=== PATIENT | female | born 1980 | race Caucasian/White ===

== ENCOUNTER → 2020-04-28 15:45 | Observation (INO) ==
[2020-04-27 14:08] LABS: Bilirubin,Urine Negative (Negative); Blood,Urine Negative (Negative); Clarity,Urine Clear (Clear); Color,Urine Colorless (Yellow); Glucose,Urine (UA) Normal (Normal); Ketones,Urine Negative (Negative); Leukocyte Esterase,Urine Negative (Negative); Nitrite,Urine Negative (Negative); PH,Urine 7.5 pH Units (5.0-8.0); Protein,Urine Negative (Neg-Trace); Specific Gravity,Urine 1.005 (1.010-1.025); Urobilinogen,Urine Normal (Normal)
[2020-04-27 15:01] LABS: Basophils % 0.4 %; Eosinophils # 0.1 K/mcL (0.0-0.6); Eosinophils % 0.5 %; Hematocrit 32.8 % (35.3-44.9); Hemoglobin 10.3 g/dL (11.5-15.4); Immature Granulocytes % 1.3 % (0-4); Lymphocytes # 1.5 K/mcL (0.6-4.6); Lymphocytes % 13.9 %; Mean Corpuscular HGB Conc 31.4 g/dL (31.6-35.5); Mean Corpuscular Hemoglobin 26.2 pg (28.0-33.3); Mean Corpuscular Volume 83.5 fL (83.0-100.0); Mean Platelet Volume 10.1 fL (9.4-12.4); Monocytes # 0.5 K/mcL (0.0-1.3); Neutrophils # 8.5 K/mcL (1.6-8.9); Nucleated Red Blood Cells 0.2 /100 WBC (0); Platelet Count 319 K/mcL (140-400); Red Blood Count 3.93 M/mcL (3.82-4.97); Red Cell Distribution Width 15.3 % (11.5-14.5); Segmented Neutrophils % 78.9 %; White Blood Count 10.8 K/mcL (4.3-11.1)
[2020-04-27 15:10] LABS: Protein/Creatinine Ratio,Urine 0.41 mg/mg (0.00-0.20)
[2020-04-27 15:21] LABS: Alanine Aminotransferase 10 Units/L (7-52); Aspartate Amino Transferase 10 Units/L (13-39); BUN/Creatinine Ratio 14 (6-26); Blood Urea Nitrogen 6 mg/dL (6-20); Lactate Dehydrogenase 120 Units/L (140-271); Uric Acid 3.5 mg/dL (2.3-7.6); eGFR For African Americans > 60 (> 60); eGFR For Non-African Americans > 60 (> 60)
[2020-04-27] MEDS: Betamethasone Acet/SodPhos 30 MG/5 ML VIAL IM SCH (17:18)
[2020-04-27] MEDS: Ringers Solution, Lactated 1,000 ML IVC SCH (17:18)
[2020-04-28] MEDS: Ringers Solution, Lactated 1,000 ML IVC SCH ×2 (00:11→08:48)
[2020-04-28] MEDS: Betamethasone Acet/SodPhos 30 MG/5 ML VIAL IM SCH (05:07)
[2020-04-28 08:42] LABS: Alanine Aminotransferase 10 Units/L (7-52); Aspartate Amino Transferase 10 Units/L (13-39); BUN/Creatinine Ratio 10 (6-26); Blood Urea Nitrogen 4 mg/dL (6-20); Lactate Dehydrogenase 135 Units/L (140-271); eGFR For African Americans > 60 (> 60); eGFR For Non-African Americans > 60 (> 60)
[~2020-04-28 15:45] MED LIST: *HR* Metformin 500 MG TABLET PO SCH; Betamethasone Acet/SodPhos 30 MG/5 ML VIAL IM SCH; LABETALOL 100 MG PO SCH; NIFEDIPINE 30 MG PO SCH; NIFEDIPINE 90 MG PO SCH; NIFEdipine XL (24 HR) 30 MG TAB.ER.24 PO SCH; Ringers Solution, Lactated 1,000 ML IVC ONE
== END | disposition home or self-care (01) ==
LOC: 1NENULAB
PROVIDERS: ADMIT Obstetrics & Gynecology; ATTEND Obstetrics & Gynecology

== ENCOUNTER → 2020-04-29 14:03 | Observation (INO) | END | disposition home or self-care (01) | LOC: 1NENULAB | PROVIDERS: ADMIT Obstetrics & Gynecology; ATTEND Obstetrics & Gynecology ==

== ENCOUNTER 2020-04-30 12:37 | Inpatient (IN) ==
[2020-04-30] MEDS ORDERED: Famotidine 20 MG/2 ML VIAL IVP ONE (12:57)
[2020-04-30] MEDS ORDERED: Oxytocin 20 units/ LR 1000 mL 20 UNIT/1,000 ML BAG IVC ONE (12:57)
[2020-04-30] MEDS ORDERED: CeFAZolin Syr 3,000MG/30 ML 3,000 MG/30 ML SYRINGE IVPB ONE (12:57)
[2020-04-30] MEDS ORDERED: Metoclopramide 10 MG/2 ML VIAL IVP ONE (12:57)
[2020-04-30] MEDS ORDERED: Ringers Solution, Lactated 1,000 ML IVC SCH ×2 (13:00→21:38)
[2020-04-30] MEDS ORDERED: FLU Vac QV 20-21 (6Month+)/PF 0.5 ML SYRINGE IM ONE (14:32)
[2020-04-30 14:34] LABS: Basophils # 0.1 K/mcL (0.0-0.2); Basophils % 0.4 %; Eosinophils % 0.3 %; Hematocrit 31.5 % (35.3-44.9); Hemoglobin 10.1 g/dL (11.5-15.4); Immature Granulocytes % 1.7 % (0-4); Lymphocytes # 1.7 K/mcL (0.6-4.6); Lymphocytes % 13.9 %; Mean Corpuscular HGB Conc 32.1 g/dL (31.6-35.5); Mean Corpuscular Hemoglobin 26.4 pg (28.0-33.3); Mean Corpuscular Volume 82.2 fL (83.0-100.0); Mean Platelet Volume 9.9 fL (9.4-12.4); Monocytes # 0.7 K/mcL (0.0-1.3); Monocytes % 5.9 %; Neutrophils # 9.3 K/mcL (1.6-8.9); Platelet Count 306 K/mcL (140-400); Red Blood Count 3.83 M/mcL (3.82-4.97); Red Cell Distribution Width 15.3 % (11.5-14.5); Segmented Neutrophils % 77.8 %; White Blood Count 11.9 K/mcL (4.3-11.1)
[2020-04-30 14:50] LABS: Amphetamine Screen,Urine Negative ng/mL (Cutoff=1000); Barbiturate Screen,Urine Negative ng/mL (Cutoff=200); Benzodiazepines Screen,Urine Negative ng/mL (Cutoff=200); Cannabinoid Screen,Urine Negative ng/mL (Cutoff = 50); Cocaine Screen,Urine Negative ng/mL (Cutoff= 300); Opiate Screen,Urine Negative ng/mL (Cutoff=300); Phencyclidine Screen,Urine Negative ng/mL (Cutoff=25)
[2020-04-30 15:27] LABS: Creatinine,Urine 13 mg/dL
[2020-04-30 16:15] LABS: Alanine Aminotransferase 12 Units/L (7-52); Aspartate Amino Transferase 12 Units/L (13-39); BUN/Creatinine Ratio 12 (6-26); Blood Urea Nitrogen 5 mg/dL (6-20); Glucose 80 mg/dL (70-105); Lactate Dehydrogenase 142 Units/L (140-271); Uric Acid 3.4 mg/dL (2.3-7.6); eGFR For African Americans > 60 (> 60); eGFR For Non-African Americans > 60 (> 60)
[2020-04-30] MEDS ORDERED: *HR* Promethazine 25 MG/ML VIAL IVP PRN (16:41)
[2020-04-30] MEDS ORDERED: *HR* OxyCODONE Immed Rel 5 MG TABLET PO PRN (16:41)
[2020-04-30] MEDS ORDERED: Ondansetron 4 MG/2 ML VIAL IVP PRN ×2 (16:41→21:38)
[2020-04-30] MEDS ORDERED: *HR* FentaNYL (PF) 100 MCG/2 ML VIAL ONE (17:44)
[2020-04-30] MEDS ORDERED: *HR* Morphine Sulfate/PF 10 MG/10 ML AMPUL ONE (17:44)
[2020-04-30] MEDS ORDERED: *HR* Midazolam HCl 2 MG/2 ML VIAL ONE (17:44)
[2020-04-30] MEDS ORDERED: Ondansetron 4 MG/2 ML VIAL ONE (18:23)
[2020-04-30] MEDS ORDERED: Acetaminophen IV 1,000 MG/100 ML INFUS..BTL ONE (18:35)
[2020-04-30] MEDS ORDERED: Ketorolac 30 MG/ML VIAL ONE (18:36)
[2020-04-30] MEDS ORDERED: *HR* OxyCODONE/APAP 5/325 TABLET PO PRN (21:38)
[2020-04-30] MEDS ORDERED: Fluticasone Propionate Nasal 50 MCG/SPRAY BOTTLE NS PRN (21:38)
[2020-04-30] MEDS ORDERED: Sennosides 8.6 MG TABLET PO PRN (21:38)
[2020-04-30] MEDS ORDERED: *HR* OxyCODONE/APAP 10/325 TABLET PO PRN (21:38)
[2020-04-30] MEDS ORDERED: Metoclopramide 10 MG/2 ML VIAL IVP PRN (21:38)
[2020-04-30] MEDS ORDERED: Oxytocin 20 units/ LR 1000 mL 20 UNIT/1,000 ML BAG IVC SCH (21:38)
[2020-04-30] MEDS ORDERED: Simethicone 80 MG TAB.CHEW PO PRN (21:38)
[2020-04-30] MEDS ORDERED: *HR* Enoxaparin 40 MG/0.4 ML SYRINGE SQ ONE (22:00)
[2020-05-01] MEDS: Ibuprofen 600 MG TABLET PO PRN ×4 (02:27→20:02)
[2020-05-01 06:19] LABS: Basophils # 0.1 K/mcL (0.0-0.2); Basophils % 0.5 %; Eosinophils # 0.1 K/mcL (0.0-0.6); Eosinophils % 0.5 %; Hematocrit 31.5 % (35.3-44.9); Hemoglobin 9.9 g/dL (11.5-15.4); Immature Granulocytes % 1.2 % (0-4); Lymphocytes # 1.7 K/mcL (0.6-4.6); Lymphocytes % 12.8 %; Mean Corpuscular HGB Conc 31.4 g/dL (31.6-35.5); Mean Corpuscular Hemoglobin 26.5 pg (28.0-33.3); Mean Corpuscular Volume 84.2 fL (83.0-100.0); Mean Platelet Volume 9.9 fL (9.4-12.4); Monocytes # 0.7 K/mcL (0.0-1.3); Neutrophils # 10.4 K/mcL (1.6-8.9); Platelet Count 303 K/mcL (140-400); Red Blood Count 3.74 M/mcL (3.82-4.97); Red Cell Distribution Width 15.5 % (11.5-14.5)
[2020-05-01] MEDS: cephALEXin 500 MG CAPSULE PO SCH ×3 (07:56→20:02)
[2020-05-01] MEDS: Prenatal Vit/FA 1 EACH TABLET PO SCH (07:56)
[2020-05-01] MEDS: metroNIDAZOLE 500 MG TABLET PO SCH ×3 (07:57→20:02)
[2020-05-01] MEDS ORDERED: NIFEdipine XL (24 HR) 30 MG TAB.ER.24 PO SCH (09:00)
[2020-05-02] MEDS: Ibuprofen 600 MG TABLET PO PRN ×2 (04:57→15:19)
[2020-05-02] MEDS ORDERED: FLU Vac QV 20-21 (6Month+)/PF 0.5 ML SYRINGE IM ONE (08:09)
[2020-05-02] MEDS ORDERED: Ondansetron ODT 4 MG TAB.RAPDIS SL PRN (09:12)
[2020-05-02] MEDS ORDERED: Scopolamine Patch 1.5 MG PATCH.TD72 TD SCH (09:15)
[2020-05-02] MEDS: NIFEdipine XL (24 HR) 30 MG TAB.ER.24 PO SCH (10:03)
[2020-05-02] MEDS: *HR* HYDROcodone/Acet 5/325 mg TABLET PO PRN ×2 (10:03→18:14)
[2020-05-02] MEDS: Prenatal Vit/FA 1 EACH TABLET PO SCH (10:04)
[2020-05-02] MEDS: cephALEXin 500 MG CAPSULE PO SCH ×2 (10:05→15:18)
[2020-05-02] MEDS: metroNIDAZOLE 500 MG TABLET PO SCH ×2 (10:06→15:18)
[2020-05-02] MEDS: *HR* Enoxaparin 60 MG/0.6 ML SYRINGE SQ SCH (18:12)
[2020-05-03] MEDS: Ibuprofen 600 MG TABLET PO PRN ×2 (03:09→13:19)
[2020-05-03] MEDS: *HR* HYDROcodone/Acet 5/325 mg TABLET PO PRN (03:09)
[2020-05-03] MEDS: *HR* Enoxaparin 60 MG/0.6 ML SYRINGE SQ SCH (04:34)
[2020-05-03] MEDS: NIFEdipine XL (24 HR) 30 MG TAB.ER.24 PO SCH (08:08)
[2020-05-03] MEDS: Prenatal Vit/FA 1 EACH TABLET PO SCH (08:08)
[2020-05-03 10:51] VITALS: BP 131/84
== END 2020-05-03 13:23 | disposition home or self-care (01) | DRG 787 ==
LOC: 1NENULAB 12:37 → 1NENUOBS 21:40
PROVIDERS: ADMIT Obstetrics & Gynecology; ATTEND Obstetrics & Gynecology